=== PATIENT | female | born 1965 ===

== ENCOUNTER 2020-07-09 15:29 | Outpatient (CLI) | payer OTHER ==
[2020-07-12] MEDS ORDERED: AVAPRO150 MG PO (13:32)
[2020-07-12] MEDS ORDERED: WARFARIN SODIUM3 MG PO (13:32)
[2020-07-12] MEDS ORDERED: METFORMIN HCL500 M3 PO (13:32)
[2020-07-12] MEDS ORDERED: PREVACID30 M1 PO (13:33)
[2020-07-12] MEDS ORDERED: HYDROCHLOROTHIA25 MG PO (13:33)
== END 2020-07-09 15:33 | disposition home or self-care (01) ==
LOC: LAB 15:29
PROVIDERS: ATTEND Internal Medicine Geriatric Medicine
DX: D69.49 Other primary thrombocytopenia (principal)

== ENCOUNTER 2020-07-16 06:42 | Day surgery (SDC) | payer OTHER ==
[~2020-07-16 06:42] MED LIST: AVAPRO150 MG PO; HYDROCHLOROTHIA25 MG PO; METFORMIN HCL500 M3 PO; PREVACID30 M1 PO; WARFARIN SODIUM3 MG PO
[2020-07-16] MEDS ORDERED: ULTRACET PO (13:35)
[2020-07-16] MEDS ORDERED: MACROBID 100 M100 MG PO (13:35)
== END 2020-07-16 18:05 | disposition home or self-care (01) ==
LOC: CIR.AMB 06:42
PROVIDERS: ATTEND Obstetrics & Gynecology Gynecology
DX: N81.11 Cystocele, midline (principal); Z20.822 Contact with and (suspected) exposure to COVID-19